=== PATIENT | male | born 1960 | race African-American/Black ===

== ENCOUNTER 2017-09-20 13:04 | Inpatient (IN) | payer MEDICARE, OTHER ==
[~2017-09-20] VITALS: Ht 188 cm; Wt 90.9 kg
[2017-09-20] VITALS (11 sets, daily range): BP systolic 117–123; BP diastolic 68–79; PULSE 70–103; RESP 16–17; TEMP 98–99.6; O2SAT 98
[~2017-09-20 13:04] MED LIST: ASPI81 PO; CYCL-36 PO; DICL75 PO
[2017-09-20] MEDS ORDERED: ASPIRIN 81 MG CHEW TAB PO STA (13:07)
[2017-09-20] MEDS ORDERED: SODIUM CHLOR 0.9% 1000 ML INJ 1,000 ML IV ONE (13:07)
[2017-09-20] MEDS ORDERED: NITROGLYCERIN 0.4 MG SL 25 TABS/BTL SL STA (13:07)
[2017-09-20] MEDS ORDERED: HEPARIN SODIUM - IV 10,000 UNITS/10 ML VIAL IV PUSH STA (13:07)
[2017-09-20] MEDS ORDERED: NITROGLYCERIN-D5W 50 MG/250 ML 0 ML ONE (13:11)
[2017-09-20] MEDS ORDERED: HEPARIN SODIUM - IV 10,000 UNITS/10 ML VIAL ONE (13:11)
[2017-09-20] MEDS ORDERED: SODIUM CHLORIDE 0.9% FLUSH 10 ML FLUSH IVF PRN (13:15)
[2017-09-20] MEDS ORDERED: NITROGLYCERIN-D5W 50 MG/250 ML 250 ML IV PRN ×2 (13:15→13:45)
--- NOTE | 2017-09-20 13:16 | PD ---
HPI Chief Complaint: STEMI Alert Time Seen by Provider: 13:06 Travel History International Travel<30 days: No Contact w/Intl Traveler<30days: No Traveled to known affect area: No History of Present Illness HPI This is a 57-year-old male with a history of coronary artery disease, reported cocaine use, who presents today with complaints of 3 day history of mid substernal chest pain. Patient was called a STEMI alert in the field. Patient at that time had anterior ST elevation. Patient reports that as a 5-6 out of 10 on the pain scale. He denies any nausea or diaphoresis. He reports the pain does radiate from his substernal area to his right chest wall. The patient states he had an IA 6 years ago. He states at that time Dr. Vergara performed a cardiac catheterization. There are no other complaints at the time of my examination. PFSH Past Medical History Arthritis: Yes (BILATERAL KNEE SURGERIES) Asthma: No Autoimmune Disease: No Blood Disorders: No Anxiety: No Depression: No Heart Rhythm Problems: No Cancer: No Cardiac Catheterization: Yes Cardiovascular Problems: Yes (6 STENTS) High Cholesterol: No Chemotherapy: No Chest Pain: Yes Congestive Heart Failure: No COPD: No Cerebrovascular Accident: No Diabetes: No Diminished Hearing: No Endocrine: No Gastrointestinal Disorders: No GERD: No Glaucoma: No Genitourinary: No Hepatitis: No Hiatal Hernia: No Hypertension: Yes Immune Disorder: No Kidney Stones: No Musculoskeletal: Yes (ARTHROSCOPY TO BOTH KNEES, HERNIATED DISCS) Neurologic: No Psychiatric: No Reproductive: No Respiratory: No Integumentary: No Immunizations Current: No Migraines: No Myocardial Infarction: Yes (2011) Radiation Therapy: No Renal Failure: No Seizures: No Sickle Cell Disease: No Sleep Apnea: No Thyroid Disease: No Ulcer: No Past Surgical History Abdominal Surgery: No AICD: No Arteriovenous Shunt: No Body Medical Devices: CARDIAC STENTS Cardiac Surgery: Yes (X3) Coronary Artery Bypass Graft: No Coronary Stent: Yes (X6 ) Ear Surgery: No Endocrine Surgery: No Eye Surgery: No Genitourinary Surgery: No Gynecologic Surgery: No Insulin Pump: No Joint Replacement: No Oral Surgery: No Pacemaker: No Thoracic Surgery: No Social History Alcohol Use: Yes (OCCASIONAL ) Tobacco Use: No Substance Use: No Allergies-Medications (Allergen,Severity, Reaction): Coded Allergies: No Known Allergies (Verified Allergy, Unknown, 09/20/17) Reported Meds & Prescriptions Reported Meds & Active Scripts Active Flexeril (Cyclobenzaprine HCl) 10 Mg Tab 10 Mg PO TID PRN Do not drive on medication. Do not take with alcohol. Diclofenac Sodium 75 Mg Tab 75 Mg PO BID PRN 10 Days Reported Aspirin 81 Mg Tab 81 Mg PO DAILY Review of Systems Except as stated in HPI: all other systems reviewed are Neg General / Constitutional: No: Fever Eyes: No: Blurred Vision, Photophobia HENT: No: Headaches, Masses Cardiovascular: Positive: Chest Pain or Discomfort, No: Palpitations, Irregular Rhythm (Substernal with radiation to the right side) Respiratory: Positive: Shortness of Breath, No: Cough Gastrointestinal: No: Nausea, Vomiting, Abdominal Pain Genitourinary: No: Frequency, Dysuria, Nocturia Musculoskeletal: No: Weakness, Pain Neurologic: No: Weakness, Dizziness, Headache Psychiatric: Positive: Substance Abuse (Reported cocaine use last night), No: Disorder of Thought Hematologic/Lymphatic: No: Easy Bruising Physical Exam Narrative GENERAL: Well-developed well-nourished male in no acute respiratory distress. Patient does have a slightly pale pallor to him. SKIN: Focused skin assessment warm/dry. HEAD: Atraumatic. Normocephalic. EYES: Pupils equal and round. No scleral icterus. No injection or drainage. ENT: No nasal bleeding or discharge. Mucous membranes pink and moist. NECK: Trachea midline. No JVD. Supple. CARDIOVASCULAR: Regular rate and rhythm. No murmur appreciated. RESPIRATORY: No accessory muscle use. Clear to auscultation. Breath sounds equal bilaterally. GASTROINTESTINAL: Abdomen soft, non-tender, nondistended. Hepatic and splenic margins not palpable. MUSCULOSKELETAL: No obvious deformities. No clubbing. No cyanosis. No edema. NEUROLOGICAL: Awake and alert. No obvious cranial nerve deficits. Motor grossly within normal limits. Normal speech. PSYCHIATRIC: Appropriate mood and affect; insight and judgment normal. Data Data Last Documented VS Vital Signs Date Time Temp Pulse Resp B/P (MAP) Pulse Ox O2 Delivery O2 Flow Rate FiO2 09/20/17 13:04 98 Nasal Cannula 2.00 09/20/17 13:04 97 17 09/20/17 13:04 98.0 123/79 (94) Orders Orders Troponin I (09/20/17 13:07) Ckmb (Isoenzyme) Profile (09/20/17 13:07) Complete Blood Count With Diff (09/20/17 13:07) I-Stat Profile (09/20/17 13:07) I-Stat Creatinine (09/20/17 13:07) Calcium (09/20/17 13:07) Magnesium (Mg) (09/20/17 13:07) Prothrombin Time / Inr (Pt) (09/20/17 13:07) Act Partial Throm Time (Ptt) (09/20/17 13:07) B-Type Natriuretic Peptide (09/20/17 13:07) Chest, Single Ap (09/20/17 13:07) Electrocardiogram (09/20/17 13:07) Oxygen Administration (09/20/17 13:07) Iv Access Insert/Monitor (09/20/17 13:07) Oximetry (09/20/17 13:07) Sodium Chlor 0.9% 1000 Ml Inj (Ns 1000 M (09/20/17 13:07) Sodium Chloride 0.9% Flush (Ns Flush) (09/20/17 13:15) Aspirin Chew (Aspirin Chew) (09/20/17 13:07) Nitroglycerin Sl (Nitrostat Sl) (09/20/17 13:07) Nitroglycerin-D5w 50 Mg/250 Ml (Nitrogly (09/20/17 13:15) Heparin Inj (Heparin Inj) (09/20/17 13:07) Cardiac Catheterization (09/20/17 ) Heparin Inj (Heparin Inj) (09/20/17 13:11) Admit Order (Ed Use Only) (09/20/17 13:16) CKMB (09/20/17 13:05) CKMB% (09/20/17 13:05) Labs Laboratory Tests Test 09/20/17 13:05 White Blood Count 6.3 TH/MM3 Red Blood Count 5.17 MIL/MM3 Hemoglobin 16.1 GM/DL Bedside Hemoglobin 16.3 G/DL Hematocrit 47.5 % Bedside Hematocrit 48.0 % Mean Corpuscular Volume 91.8 FL Mean Corpuscular Hemoglobin 31.2 PG Mean Corpuscular Hemoglobin Concent 34.0 % Red Cell Distribution Width 13.1 % Platelet Count 227 TH/MM3 Mean Platelet Volume 6.9 FL Neutrophils (%) (Auto) 48.5 % Lymphocytes (%) (Auto) 36.7 % Monocytes (%) (Auto) 8.7 % Eosinophils (%) (Auto) 5.3 % Basophils (%) (Auto) 0.8 % Neutrophils # (Auto) 3.1 TH/MM3 Lymphocytes # (Auto) 2.3 TH/MM3 Monocytes # (Auto) 0.6 TH/MM3 Eosinophils # (Auto) 0.3 TH/MM3 Basophils # (Auto) 0.1 TH/MM3 CBC Comment DIFF FINAL Differential Comment Prothrombin Time 11.0 SEC Prothromb Time International Ratio 1.1 RATIO Activated Partial Thromboplast Time 25.6 SEC Bedside Sodium 144 MMOL/L Bedside Potassium 4.1 MMOL/L Bedside Chloride 106 MMOL/L Bedside Blood Urea Nitrogen 10 MG/DL Bedside Creatinine 1.0 MG/DL Bedside Glucose 135 MG/DL Calcium Level 8.3 MG/DL Magnesium Level 2.3 MG/DL Total Creatine Kinase 388 U/L Creatine Kinase MB 8.0 NG/ML Creatine Kinase MB % 2.1 % Troponin I 0.57 NG/ML B-Type Natriuretic Peptide 83 PG/ML MDM Medical Decision Making Medical Screen Exam Complete: Yes Emergency Medical Condition: Yes Differential Diagnosis ACS versus muscular skeletal pain versus thoracic dissection Narrative Course 57-year-old male with history coronary disease, previous IA, presents here with ST elevation IA. Patient was made a STEMI alert in the field. Patient has 3-[address] elevation in V2 V3 V4. The patient was made a STEMI alert by EKG in the field. Case was discussed with Dr. Steven Hooper, who will take the [facility] to [facility] for catheterization. He has been given a bolus of 5500 units of heparin. He has had an aspirin prior to arrival. He is getting nitroglycerin. Diagnosis Primary Impression: Acute ST elevation myocardial infarction Additional Impressions: Reported cocaine use History of coronary artery disease Admitting Information Admitting Physician Requests: Admit Dillon Stovall MD Sep 20, 2017 13:16
[2017-09-20] MEDS ORDERED: HEPARIN-NS/PF FLUSH BAG 2,000 ML IV FLUSH ONE (13:24)
[2017-09-20 13:26] LABS: AUTOMATED NEUTROPHIL # 3.1 TH/MM3 (1.8-7.7); BASOPHIL # 0.1 TH/MM3 (0-0.2); BASOPHIL % 0.8 % (0.0-2.0); EOSINOPHIL # 0.3 TH/MM3 (0-0.4); EOSINOPHIL % 5.3 % (0.0-4.0); HEMATOCRIT 47.5 % (39.0-51.0); HEMOGLOBIN 16.1 GM/DL (13.0-17.0); LYMPH % 36.7 % (9.0-44.0); LYMPHOCYTE # 2.3 TH/MM3 (1.0-4.8); MEAN CELL VOLUME 91.8 FL (80.0-100.0); MEAN CORPUSCULAR HEMOGLOBIN 31.2 PG (27.0-34.0); MEAN PLATELET VOLUME 6.9 FL (7.0-11.0); MONO % 8.7 % (0.0-8.0); MONOCYTE # 0.6 TH/MM3 (0-0.9); NEUT % 48.5 % (16.0-70.0); PLATELET COUNT 227 TH/MM3 (150-450); RED BLOOD COUNT 5.17 MIL/MM3 (4.50-5.90); RED CELL DISTRIBUTION WIDTH 13.1 % (11.6-17.2); WHITE BLOOD COUNT 6.3 TH/MM3 (4.0-11.0)
[2017-09-20 13:34] LABS: INTERNATIONAL NORMALIZED RATIO 1.1 RATIO
[2017-09-20] MEDS ORDERED: MIDAZOLAM HCL 2 MG/2 ML VIAL ONE (13:34)
[2017-09-20 13:38] LABS: CALCIUM 8.3 MG/DL (8.5-10.1)
[2017-09-20 13:44] LABS: MAGNESIUM 2.3 MG/DL (1.5-2.5)
[2017-09-20 13:46] LABS: TROPONIN I 0.57 NG/ML (0.02-0.05)
[2017-09-20] MEDS ORDERED: TIROFIBAN INFUSION INJ 250 ML IV ONE (13:48)
--- NOTE | 2017-09-20 13:54 | RADRPT ---
EXAM DATE/TIME: 09/20/2017 13:05 [facility] COMPARISON: No previous studies available for comparison. INDICATIONS : Chest pain; Stemi alert. MEDICAL HISTORY : Myocardial infarction. SURGICAL HISTORY : Cardiac cath. Coronary stent. ENCOUNTER: Initial ACUITY: 1 day PAIN SCORE: 7/10 LOCATION: Bilateral chest FINDINGS: Single portable frontal view the chest shows hazy bibasilar parenchymal consolidations. These are ill -defined. No effusions. Heart is normal in size. Bony structures are unremarkable. CONCLUSION: Hazy ill-defined bibasilar parenchymal densities. Danilo Rubio Jr., MD on September 20, 2017 at 13:49 Board Certified Radiologist. This report was verified electronically.
[2017-09-20] MEDS ORDERED: TICAGRELOR 90 MG TAB PO ONE (14:04)
[2017-09-20] MEDS: TIROFIBAN INFUSION INJ 250 ML IV SCH (14:08)
[2017-09-20] MEDS ORDERED: SODIUM CHLOR 0.9% 1000 ML INJ 1,000 ML IV SCH (14:08)
--- NOTE | 2017-09-20 14:13 | CATHPROC ---
[employer] HIS Report Study Information Study Number Admission Scheduled Start Study Start [id number] Sep 20 2017 1:04PM 09/20/2017 Sep 20 2017 1:17PM [facility] Cardiac Catheterization Admit Source Facility Department Emergency department [facility] - Office Clinician Physician and Clinical Staff Initial Steven Arango Wireless Consultant Isidoro Aguillon,MEI Wireless Consultant Renay Thomas,PRIEST TECH2 Recorder Justo Mcclure,(R) Recorder Zahra Clark BSN Scrub Cb Mccarty RCIS(BS) Procedures Performed Procedure Location (Site) Vessel Name Coronary Angiograms LCA Left Coronary Coronary Angiograms RCA Right Coronary Drug Eluting Inflatio LAD Mid Left Coronary L Heart Cath LV Gram-hand inj. LV LV Ventricle PTCA LAD Mid Left Coronary PTCA ADD ON'S Wire insertion Fem Art (right) Femoral Art Equipment Time Rx Specialist Description Size Mfg Part Number Used/Scraped [id number] 13:44 [employer] WIRE, ASAHI PROWATER 180CM 180CM Used *[id number] TRANSDUCER, TRUWAVE [id number] 13:34 HERNANDEZ IZQUIERDO * Used W/STOCKCOCK *[id number] *[id number] [id number] *[id number] *[id number] *[id number] 13:34 [employer] IND[employer] PACK, CCL CUSTOM * Used *[id number] 13:34 [employer] PACER PEN, SKIN DUAL W/ RULER * Used *[id number] 13:48 [employer] BALLOON, 3.0 X 15MM EUPHORA 15MM Used *[id number] 13:50 [employer] STENT, 3.0 22MM BECKY 3.0 22MM Used *[id number] 13:45 Oxyrane [employer] MEDICAL 30 GATITO INDEFLATOR Used *[id number] 13:34 Oxyrane [employer] SHEATH, FR6.5 PRELUDE 11CM FR 6.5 038ACT Used *[id number] 13:34 [employer]xy[employer] WIRE, 3MMJ .035 180CM 180CM Used *[id number] 13:34 NAMIC MANIFOLD, 4 PORT * Used *[id number] 13:34 [employer] OMNIPAQUE, 350 MG, 150ML 150ML [id number] Used [id number] 13:34 [facility] BLANKET,WARM AIR CCL * Used *[id number] Equipment Model, Serial, Lot Number and Expiration Data Description Model Number Serial Number Lot Number Expiration Date STENT, 3.0 22MM BECKY [id number] 02-02-2019 History: Allergies Allergy Reaction No Known Allergies Labs Hgb (g/dl) Hct (%) 11.60-17.00 35.00-51.00 16.3 48 BUN (mg/dl) Creatinine (mg/dl) BUN:Creatinine (1:x) 7.00-18.00 0.50-1.30 10.00-20.00 10 1.0 10 Na (meq/l) K (meq/l) 136.00-145.00 3.50-5.10 144 4.1 CPK-MB (ng/ML) 0.50-3.60 Not Drawn Medication Medication Total Dose (Bolus/Oral) Medication Total Dosage/Unit 1% XYLOCAINE 20 mL AGGRASTAT BOLUS 46 mL BRILINTA 180 mg Medications (Bolus/Oral) Medication Time Given Dosage/Unit Administered By Reason 1% XYLOCAINE 09/20/2017 1:40:14 PM 20 mL Steven Lock 20 mL 1% XYLOCAINE given in lab by Steven Lock in Right Groin via Subcutaneous. Ordered by Carrillo Lockn. AGGRASTAT BOLUS 09/20/2017 1:51:43 PM 46 mL Isidoro Aguillon 46 mL AGGRASTAT BOLUS given in lab by Isidoro Aguillon RN in Left Forearm via Peripheral IV. Ordered b Steven Gee. BRILINTA 09/20/2017 2:05:23 PM 180 mg Isidoro Aguillon 180 mg BRILINTA given in lab by Isidoro Aguillon, MEI via Oral. Ordered by Steven Lock. Medication (Drip) Medication Time Given Dosage/Unit Concentration/Unit Diluent (ml) Solution AGGRASTAT DRIP 09/20/2017 1:55:53 PM 0.147 mcg/kg/min 12.5 mg 250 NaCl .9 0.147 mcg/kg/min AGGRASTAT DRIP given in lab by Isidoro Aguillon RN in Left Forearm via Peripheral IV. Pump/Drip Flow = 16 ml/hr using NaCl .9 with a concentration of 12.5 mg in 250 ml. Ordered by Steven Lock. IV Solutions 09/20/2017 1:25:47 PM 0 mL (IV) 500 NaCl .9 Patient arrived on IV Solutions given by Steven Lock in Left Forearm via Peripheral IV. Pump/Drip Fl ow = 20 ml/hr using NaCl .9. Ordered by Steven Lock. Initial Case Assessment Initial Case Assessment Cardiovascular HR Rhythm NIBP Chest Pain 89 sr 109/78 2 Edema Present Skin color Skin None Normal Warm Dry Circulatory - Right Pulses Posterior Tibial Femoral 3 3 Scale (0,1,2,3,4,d) Circulatory - Left Pulses Posterior Tibial Femoral 3 3 Scale (0,1,2,3,4,d) Neurological State Oriented to time-place- Alert Moves all extremities person Respiration - General Respiration Rate SpO2 (%) O2 (lpm) (B/min) 17 92 2 Final Case Assessment Cardiovascular HR Rhythm NIBP 93 sr 106/70 Edema Present Skin color Skin None Normal Warm Dry Respiration - General Respiration Rate SpO2 (%) O2 (lpm) (B/min) 11 94 2 Chronological Log Time Study Chronological Log 13:24:44 Patient arrived via Bed. 13:24:45 Patient Name, D.O.B, / Armband Verified By R.N. 13:24:48 Consent signed by the physician and the patient and verified by the Office Clinician staff. 13:24:50 Pre-op and post- op instructions given; patient acknowledges understanding of instructions . 13:25:30 Presedation assessment performed by Office Clinician RN. 13:25:41 Skin Breakdown- none per patient 13:25:42 Patient Warmer Placed on the Table. 13:25:44 Disposable Defibrillator Pads Placed On Patient. 13:25:46 Yael Prominences Protected 13:25:47 A # 20 IV was noted in the Forearm (right). Grade = 0 Patient arrived on IV Solutions given by Steven Lock in Left Forearm via Peripheral IV. Pump/D rip Flow = 20 ml/hr 13:25:47 using NaCl .9. Ordered by Steven Lock. 13:25:48 History and physical on the chart or being dictated. 13:25:50 Assessment: Initial Case Vitals capture started with the following parameters, Patient=Adult, Interval=3 min, Initial Pr mdjzjx=781 mmHg, 13:28:01 Deflation Rate=5 mmHg, Cuff placed on Left Arm 13:28:31 KEKM=901/73 mmhg, SpO2=89.0 %, Lopez=2 13:29:03 A # 20 IV was noted in the Forearm (left). Grade = 0 13:29:44 History and physical on the chart or being dictated. 13:31:33 EB=461 bpm, USBF=663/73 mmhg, SpO2=89.0 %, Resp=27 B/min, Lopez=2 13:32:04 paged 13:32:45 Bilateral groins prepped with 2% chlorhexidine, and draped after a 3 minute waiting time. 13:33:10 MD responded 13:33:19 Reference ECG taken 13:34:15 Pressure channel 1 zeroed. 13:34:29 HR=91 bpm, CAZM=614/78 mmhg, SpO2=94.0 %, Resp=22 B/min, Pain=2, Hakeem=10, Lopez=2 Assessment: Initial Case, HR=89 BPM, Rhythm=sr, JCBA=539/78 mmhg, Chest Pain=2, Edema=None, Col or=Normal, Skin = Warm, Dry Right Pulses: Post Tib=3, Femoral=3 13:36:27 Left Pulses: Post Tib=3, Femoral=3 Neurological: State=Alert, Ox3, BAKER Respiration: Resp=17 B/min, SpO2=92 %, O2=2 lpm 13:37:28 MD arrived. 13:37:32 HR=97 bpm, LABE=378/71 mmhg, SpO2=90 %, Resp=12 B/min, Pain=2, Hakeem=10, Lopez=2 Time Out. Correct patient, correct procedure, correct physician, power injector loaded, or not loaded with contrast with 13:39:39 surgical team present. Time Out Concurred by MD and individual staff in procedure. 13:39:44 Case Start 13:40:04 Access site was Right Femoral Artery. 13:40:11 A SHEATH, FR6.5 PRELUDE 11CM FR 6.5 was advanced into the Fem Art (right) using the Percuta neous technique. 13:40:14 20 mL 1% XYLOCAINE given in lab by Steven Lock in Right Groin via Subcutaneous. Ordered by Steven Lock. 13:40:32 HR=97 bpm, UQGB=201/77 mmhg, SpO2=89 %, Resp=24 B/min, Pain=2, Hakeem=10, Lopez=2 A JL 4.0 INFINITI CATHETER FR 6 was advanced over a wire. OMNIPAQUE, 350 MG, 150ML 150ML was us ed for 13:40:48 injections. 13:41:48 The LCA was injected and visualized at various angles. OMNIPAQUE, 350 MG, 150ML 150ML used . Recorded Pressure: Ao, HR=84, Condition=Condition 1 13:42:15 (Aorta) Ao 93/63/76 13:42:41 Catheter was removed 13:42:50 Activated Clotting Time Drawn A 3DRC INFINITI CATHETER FR 6 was advanced over a wire. OMNIPAQUE, 350 MG, 150ML 150ML was used for 13:43:10 injections. 13:43:34 IY=952 bpm, VWDH=184/77 mmhg, SpO2=89 %, Resp=24 B/min, Pain=2, Hakeem=10, Lopez=2 13:43:47 The RCA was injected and visualized at various angles. OMNIPAQUE, 350 MG, 150ML 150ML used . 13:44:13 Catheter was removed A XB 3.5 GUIDE CATHETER FR 6 was advanced over a wire. OMNIPAQUE, 350 MG, 150ML 150ML was used for 13:44:35 injections. 13:44:59 OMNIPAQUE, 350 MG, 150ML 150ML and 30 GATITO INDEFLATOR added. 13:46:07 A WIRE, ASAHI PROWATER 180CM 180CM was inserted via Fem Art (right). 13:46:34 HR=98 bpm, QIEH=603/74 mmhg, SpO2=90 %, Resp=12 B/min, Pain=2, Hakeem=10, Lopez=2 13:47:03 Interventional wire has crossed the lesion A BALLOON, 3.0 X 15MM EUPHORA 15MM was inserted over WIRE, ASAHI PROWATER 180CM 180CM via the F em Art 13:47:50 (right). 13:48:09 ACT (Normal Range 90-180) = 258 A BALLOON, 3.0 X 15MM EUPHORA 15MM over a WIRE, ASAHI PROWATER 180CM 180CM in the LAD Mid was i nflated 13:48:23 using a 30 GATITO INDEFLATOR at 8 gatito for 20 sec. A BALLOON, 3.0 X 15MM EUPHORA 15MM over a WIRE, ASAHI PROWATER 180CM 180CM in the LAD Mid was i nflated 13:49:03 using a 30 GATITO INDEFLATOR at 8 gatito for 20 sec. A BALLOON, 3.0 X 15MM EUPHORA 15MM over a WIRE, ASAHI PROWATER 180CM 180CM in the LAD Mid was i nflated 13:49:23 using a 30 GATITO INDEFLATOR at 8 gatito for 20 sec. 13:49:35 HR=97 bpm, CLBA=874/68 mmhg, SpO2=93.0 %, Resp=22 B/min, Pain=2, Hakeem=10, Lopez=2 A STENT, 3.0 22MM BECKY 3.0 22MM was advanced through a XB 3.5 GUIDE CATHETER FR 6 over a WIRE, [facility] 13:50:59 PROWATER 180CM 180CM. A STENT, 3.0 22MM BECKY 3.0 22MM was deployed using a 30 GATITO INDEFLATOR at 15 atmospheres for 30 seconds in 13:51:13 the LAD Mid. 13:51:43 46 mL AGGRASTAT BOLUS given in lab by Isidoro Aguillon RN in Left Forearm via Peripheral IV. Ordered by Steven Lock. 13:52:21 Delivery device removed 13:52:35 HR=86 bpm, HYKC=269/66 mmhg, SpO2=91.0 %, Resp=24 B/min, Pain=2, Hakeem=10, Lopez=2 13:52:50 Catheter was removed A MPA-2 INFINITI CATHETER FR 6 was advanced over a wire. OMNIPAQUE, 350 MG, 150ML 150ML was use d for 13:53:08 injections. Recorded Pressure: LV, HR=97, Condition=Condition 1 13:54:21 (Left Ventricle) LV 91/14/31 13:54:28 The LV was manually injected with 10 cc's and visualized. OMNIPAQUE, 350 MG, 150ML 150ML us ed. Recorded Pressure: LV, Ao, CR=663, Condition=Condition 1 13:54:30 (Left Ventricle) LV 97/12/29, (Aorta) Ao 94/64/76 13:54:59 Catheter was removed 13:55:33 HR=98 bpm, JAMT=387/72 mmhg, SpO2=93.0 %, Resp=21 B/min, Pain=2, Hakeem=10, Lopez=2 13:55:37 Case End 0.147 mcg/kg/min AGGRASTAT DRIP given in lab by Isidoro Aguillon, RN in Left Forearm via Peripher al IV. Pump/Drip 13:55:53 Flow = 16 ml/hr using NaCl .9 with a concentration of 12.5 mg in 250 ml. Ordered by Howard Lock 13:57:23 In the Fem Art (right) the SHEATH, FR6.5 PRELUDE 11CM FR 6.[address] by Cb Mccarty RCIS(BS). 13:57:41 Sterile dressing applied to site 13:57:43 No case complications noted. 13:57:44 Cine recording checked. 13:57:47 Bedside Report will be given. 13:58:23 A Left Heart Cath was performed. 13:58:31 Contrast Scanned 13:58:35 HR=92 bpm, GYKA=450/70 mmhg, SpO2=95.0 %, Resp=11 B/min, Pain=2, Hakeem=10, Lopez=2 Assessment: Final Case, HR=93 BPM, Rhythm=sr, HVRY=805/70 mmhg, Edema=None, Color=Normal, Skin = Warm, 13:58:35 Dry Respiration: Resp=11 B/min, SpO2=94 %, O2=2 lpm 14:01:30 NIBP STAT measurement started. 14:01:31 Vitals capture stopped. 14:05:23 180 mg BRILINTA given in lab by Isidoro Aguillon, RN via Oral. Ordered by Steven Lock. 14:09:50 [facility] Study - Contrast Media Used In Study Contrast Total Opened (mL) Total Used (mL) Total Wasted (mL) Omnipaque 120 120 0 End Study - Maximum Contrast Load Max Contrast Load (mL) 455.0 End Study - Radiation Exposure Fluoro Time (minutes) 4.5 End Study - Patient Disposition Complications Transferred To Interventional Outcome No Telemetry Bed successful
[2017-09-20] MEDS ORDERED: MISC INFORMATION XX ONE (14:15)
[2017-09-20] MEDS ORDERED: TEMAZEPAM 15 MG CAP PO PRN (14:15)
[2017-09-20] MEDS ORDERED: IOHEXOL 350 MG/ML 50 ML BTL (for Cath Lab) OTHER ONE (14:48)
[2017-09-20] MEDS ORDERED: IOHEXOL 350 MG/ML 100 ML BTL (for Cath Lab) OTHER ONE (14:48)
--- NOTE | 2017-09-20 14:58 | MB ---
cc: JACOB LUX M.D. DATE OF CONSULTATION 09/20/2017 DATE OF 1960 REASON FOR CONSULTATION Acute ST-elevation myocardial infarction. HISTORY OF PRESENT ILLNESS The patient is a 57-year-old -[place] male with a history of coronary artery disease, hyperlipidemia, who was in his usual state of health up until three days ago when he began to experience intermittent episodes of substernal chest discomfort described as "heartburn." There has been no associated shortness of breath, nausea or diaphoresis. Because the chest pain became particularly severe this morning he came into the emergency room. EKG showed evidence for acute anterior ST-elevation so he was called as a STEMI Alert. He states his chest discomfort has decreased in intensity since coming into the emergency department. He denies pleurisy, dizziness, syncope, near-syncope, palpitations, pedal edema, paroxysmal nocturnal dyspnea. PAST MEDICAL HISTORY 1. Coronary artery disease status post inferior ST-elevation myocardial infarction 08/26/2011 with stent of the proximal right coronary artery at that time by Dr. Jessa Vergara, using a 3.0 mm Xience. Five days later he underwent stent x 3 of the left circumflex including a 2.75 mm at the ostium, 2.5 mm in the midsection, 2.25 mm distally. It is not entirely clear what type of stents were placed in the left circumflex. At that time he also underwent angioplasty of the diagonal. 2. Hyperlipidemia. MEDICATIONS Cardiac medications at home: None. ALLERGIES No known drug allergies. FAMILY HISTORY Noncontributory. SOCIAL HISTORY The patient smokes about seven or eight cigarettes per day. He admits to cocaine abuse, the last time last night. There is no history of alcohol abuse. REVIEW OF SYSTEMS As in the history of present illness otherwise negative or noncontributory. He also denies headache, abdominal pain, melena, dyspepsia, bright red blood per rectum. PHYSICAL EXAMINATION VITAL SIGNS: Blood pressure 123/79 with a pulse of 99, respirations 17. GENERAL: In general he is a well-developed, well-nourished -[place] male in no acute distress. HEENT/NECK: Jugular venous pressure is normal. Carotid pulses are 2+ bilaterally and without bruits. CHEST: Examination of the chest reveals clear lung irene. CARDIAC: On cardiac examination he has a regular rhythm and rate without S3, S4, or murmur. ABDOMEN: On abdominal examination he has a soft, nontender abdomen. Bowel sounds are present. There is no definite hepatosplenomegaly. EXTREMITIES: Examination of the extremities reveals no clubbing, cyanosis or edema. Peripheral pulses are normal throughout. EKG EKG shows sinus rhythm, anterior and anterolateral ST elevation consistent with acute injury pattern. LABORATORY Laboratory data is pending. IMAGING Chest x-ray is pending. IMPRESSION Acute anterior ST-elevation myocardial infarction in this 57-year-old white male with a history of coronary artery disease status post four coronary stents in [address]-elevation myocardial infarction at that time, history of hyperlipidemia, medical noncompliance. At this time he has ongoing chest pains with ST-elevation on the monitor. Therefore he has been recommended emergency cardiac catheterization with probable percutaneous coronary intervention. The nature of these procedures and the potential risks including but not limited to , myocardial infarction, stroke, arrhythmia, bleeding, infection, renal failure, have been outlined to the patient. He agrees to proceed. RECOMMENDATIONS 1. Emergency cardiac catheterization. 2. Eventually start beta cesia and PRATIBHA inhibitor therapy. 3. Daily aspirin. 4. Check a fasting lipid profile and initiate statin therapy. MD TITUS Hammond/MICHAEL /1:21 PM /2:45 PM MTDD
--- NOTE | 2017-09-20 15:42 | MA ---
cc: JACOB LUX M.D. DATE 09/20/2017 DATE OF 1960 PROCEDURE Emergency left heart catheterization, selective coronary angiography, left ventriculography, angioplasty and stent of a totally occluded mid LAD. PROCEDURE NOTES The patient was brought to the cardiac catheterization laboratory in a fasting state after having signed informed consent. The patient was in the midst of an acute anterior ST elevation myocardial infarction. The right groin was prepped and draped as per policy and anesthetized with 1% lidocaine. Arterial access was obtained via the right femoral artery and a 6 Arabic sheath placed. Coronary arteriography was performed using a 6 Arabic Arsen left 4.0 and right progressive catheters. Left ventriculography was done using a multipurpose catheter. Percutaneous coronary intervention was done as described below. There were no apparent immediate complications. HEMODYNAMIC DATA Left ventricle 97 with an end-diastolic pressure of 20. Aorta 94/64 with a mean of 76. There was no significant transvalvular aortic gradient on pullback of the pigtail catheter. CORONARY ARTERIOGRAPHY The left main may have 20% distal stenosis. The mid left anterior descending is totally occluded right after the takeoff of the first septal analytical laboratory technician. The LAD gives rise to a very small caliber diagonal which has diffuse disease with up to 95% stenosis proximally. The left circumflex is diffusely diseased. It is somewhat difficult to quantify the degree of stenosis. From its ostial to proximal portion there is likely up to 50%. Stents are evident in its mid and distal portions, and the stents are widely patent. The left circumflex gives rise to three small obtuse marginals, the first of which has up to 40% ostial stenosis, the second of which has up to 70% ostial stenosis. There is a fairly large ramus intermedius which has diffuse ostial to proximal disease resulting in up to 40% stenosis. The right coronary artery is also diffusely diseased. There is a stent evident in its proximal portion and there is mild to moderate diffuse re-stenosis of the stent resulting in up to 40% stenosis. It is somewhat difficult to tell with certainty, but the right coronary is probably totally occluded in its midportion after the takeoff of a large right ventricular branch. There are fair to good [id number] collaterals. PERCUTANEOUS CORONARY INTERVENTION DESCRIPTION Adequate heparin was given during the procedure to achieve an ACT greater than 250 seconds. Aggrastat was given as per protocol. Using a 6-Arabic XB 3.5 guiding catheter the ostium of the left main was re-engaged. Using a 0.014 [place] guidewire the total occlusion in the mid-LAD was crossed without difficulty and the tip of the wire positioned distally. Predilation was done using a 3.0-mm Euphora balloon catheter. Stenting was done using a 3.0 x 22-mm Resolute [place] stent which was deployed at 15-16 atmospheres for 30 seconds. Final angiography shows reduction of the initial total occlusion to 0% residual with no evidence for dissection or distal embolization. The patient tolerated the procedure well. There were no apparent immediate complications. LEFT VENTRICULOGRAPHY Contrast injection of the left ventricle is somewhat suboptimal as it was done as a hand injection. There appears to be global hypokinesis. Ejection fraction is estimated at 25%. CONCLUSIONS 1. Severe two-vessel coronary artery disease including an acutely occluded mid LAD, the patient's infarct-related vessel, now status post angioplasty and stent of this region. 2. Severely reduced left ventricular systolic function with ejection fraction estimated at 25% due to global hypokinesis. MD TITUS Hammond/MICHAEL /2:01 PM /3:31 PM MTDD
--- NOTE | 2017-09-20 15:54 | MA ---
See full dictated cardiac catheterization report. MD TITUS Hammond/RYANNE /2:17 PM /3:48 PM MTDD
[2017-09-20] MEDS: ATORVASTATIN 40 MG TAB PO SCH (20:56)
[2017-09-20] MEDS: ENALAPRIL MALEATE 2.5 MG TAB PO SCH (20:56)
[2017-09-20] MEDS: METOPROLOL TARTRATE 25 MG TAB PO SCH (20:56)
[2017-09-20] MEDS ORDERED: ENALAPRIL MALEATE 5 MG TAB PO SCH (21:00)
[2017-09-21] VITALS (33 sets, daily range): BP systolic 91–115; BP diastolic 49–78; PULSE 70–106; RESP 16–20; TEMP 97.8–99.9; O2SAT 95–98
[2017-09-21] MEDS: traMADol HCL 50 MG TAB PO SCH ×2 (02:30→21:33)
[2017-09-21] MEDS: TIROFIBAN INFUSION INJ 250 ML IV SCH (02:46)
[2017-09-21 06:57] LABS: AUTOMATED NEUTROPHIL # 7.3 TH/MM3 (1.8-7.7); BASOPHIL # 0.1 TH/MM3 (0-0.2); BASOPHIL % 0.5 % (0.0-2.0); EOSINOPHIL # 0.1 TH/MM3 (0-0.4); EOSINOPHIL % 0.6 % (0.0-4.0); HEMATOCRIT 45.6 % (39.0-51.0); HEMOGLOBIN 15.8 GM/DL (13.0-17.0); LYMPHOCYTE # 1.6 TH/MM3 (1.0-4.8); MEAN CELL VOLUME 91.1 FL (80.0-100.0); MEAN CORPUSCULAR HEMOGLOBIN 31.5 PG (27.0-34.0); MEAN CORPUSCULAR HGB CONC 34.6 % (32.0-36.0); MEAN PLATELET VOLUME 7.5 FL (7.0-11.0); MONO % 8.4 % (0.0-8.0); MONOCYTE # 0.8 TH/MM3 (0-0.9); NEUT % 74.5 % (16.0-70.0); PLATELET COUNT 227 TH/MM3 (150-450); RED CELL DISTRIBUTION WIDTH 13.3 % (11.6-17.2); WHITE BLOOD COUNT 9.8 TH/MM3 (4.0-11.0)
[2017-09-21 07:28] LABS: BICARBONATE 25.2 MEQ/L (21.0-32.0); CALCIUM 8.1 MG/DL (8.5-10.1); CREATININE 0.92 MG/DL (0.60-1.30)
[2017-09-21 07:44] LABS: CHOLESTEROL/ HDL RATIO 3.66 RATIO; HDL CHOLESTEROL 45.6 MG/DL (40.0-60.0)
--- NOTE | 2017-09-21 08:06 | PD.CARD.PN ---
Subjective Subjective Remarks No angina, dyspnea, dizziness, palpitations. Slept fairly well. Objective Medications Item Value Date Time Aspirin 81 mg 09/21/17 09 (Aspirin Chew) DAILY/PO Ticagrelor 90 mg 09/21/17899 (Brilinta) BID/PO Metoprolol 12.5 mg 09/20/172099 Tartrate BID/PO 09/20/172055 (Lopressor) Atorvastatin 40 mg 09/20/172099 Calcium HS/PO 09/20/172055 (Lipitor) Enalapril Maleate 2.5 mg 09/20/172099 (Vasotec) BID/PO 09/20/172055 Tirofiban/Sodium 250 ml @ 16.38 mls/hr 09/20/17 1408 Chloride .[id number] 09/21/17 0246 Current Medications Medications (Trade) Dose Ordered Sig/Prabha Route Start Time Stop Time Status Last Admin (NS Flush) 2 ml UNSCH PRN IVF 09/20/17 13:15 Nitroglycerin/ Dextrose 250 ml @ 3 mls/hr TITRATE PRN IV 09/20/17 13:45 (Restoril) 15 mg HS PRN PO 09/20/17 14:15 (Aspirin Chew) 81 mg DAILY PO 09/21/17 09:00 (Brilinta) 90 mg BID PO 09/21/17 09:00 Tirofiban/Sodium Chloride 250 ml @ 16.38 mls/ hr [id number] IV 09/20/17 14:08 09/21/17 08:07 09/21/17 02:46 (Lopressor) 12.5 mg BID PO 09/20/17 21:00 09/20/17 20:56 (Lipitor) 40 mg HS PO 09/20/17 21:00 09/20/17 20:56 (Vasotec) 2.5 mg BID PO 09/20/17 21:00 09/20/17 20:56 (Ultram) 50 mg HS PO 09/21/17 00:00 09/21/17 02:30 Vital Signs / I&O Vital Signs Date Time Temp Pulse Resp B/P (MAP) Pulse Ox O2 Delivery O2 Flow Rate FiO2 09/21/17 06:00 77 09/21/17 05:00 74 09/21/17 04:00 74 09/21/17 03:29 99.9 95 18 115/76 (89) 95 09/21/17 03:00 88 09/21/17 02:00 96 09/21/17 01:00 70 09/21/17 00:03 99.6 106 18 113/77 (89) 98 09/21/17 00:00 70 09/20/17 23:00 70 09/20/17 22:00 72 09/20/17 21:00 72 09/20/17 20:00 80 09/20/17 20:00 99.6 103 16 117/68 (84) 98 09/20/17 19:00 83 09/20/17 18:00 90 09/20/17 17:00 95 09/20/17 16:00 89 09/20/17 15:00 90 09/20/17 13:20 90 16 120/71 (87) 98 Nasal Cannula 2.00 09/20/17 13:20 09/20/17 13:04 98 Nasal Cannula 2.00 09/20/17 13:04 97 17 97 Nasal Cannula 2.00 09/20/17 13:04 98.0 99 17 123/79 (94) 98 I/O 09/20/17 09/20/17 09/20/17 09/21/17 09/21/17 09/21/17 07:00 15:00 23:00 07:00 15:00 23:00 Intake Total 1440 ml 1950 ml Output Total 300 ml 1050 ml Balance 1140 ml 900 ml Intake Oral 1440 ml 960 ml IV Total 990 ml Output Urine Total 300 ml 1050 ml Physical Exam GENERAL: Well developed, well nourished. No acute distress. HEENT: Jugular venous pressure is normal. CHEST: Lungs clear to auscultation bilaterally. CARDIAC: Regular rate and rhythm without S3, S4, or murmur. ABDOMEN: Soft, nontender, no hepatosplenomegaly. Bowel sounds present. EXTREMITIES: No clubbing, cyanosis, or edema. Right groin nontender, no hematoma. Laboratory Laboratory Tests Test 09/20/17 13:05 09/21/17 05:01 09/21/17 05:07 White Blood Count 6.3 TH/MM3 9.8 TH/MM3 Red Blood Count 5.17 MIL/MM3 5.00 MIL/MM3 Hemoglobin 16.1 GM/DL 15.8 GM/DL Bedside Hemoglobin 16.3 G/DL Hematocrit 47.5 % 45.6 % Bedside Hematocrit 48.0 % Mean Corpuscular Volume 91.8 FL 91.1 FL Mean Corpuscular Hemoglobin 31.2 PG 31.5 PG Mean Corpuscular Hemoglobin Concent 34.0 % 34.6 % Red Cell Distribution Width 13.1 % 13.3 % Platelet Count 227 TH/MM3 227 TH/MM3 Mean Platelet Volume 6.9 FL 7.5 FL Neutrophils (%) (Auto) 48.5 % 74.5 % Lymphocytes (%) (Auto) 36.7 % 16.0 % Monocytes (%) (Auto) 8.7 % 8.4 % Eosinophils (%) (Auto) 5.3 % 0.6 % Basophils (%) (Auto) 0.8 % 0.5 % Neutrophils # (Auto) 3.1 TH/MM3 7.3 TH/MM3 Lymphocytes # (Auto) 2.3 TH/MM3 1.6 TH/MM3 Monocytes # (Auto) 0.6 TH/MM3 0.8 TH/MM3 Eosinophils # (Auto) 0.3 TH/MM3 0.1 TH/MM3 Basophils # (Auto) 0.1 TH/MM3 0.1 TH/MM3 CBC Comment DIFF FINAL DIFF FINAL Differential Comment Prothrombin Time 11.0 SEC Prothromb Time International Ratio 1.1 RATIO Activated Partial Thromboplast Time 25.6 SEC Bedside Sodium 144 MMOL/L Bedside Potassium 4.1 MMOL/L Bedside Chloride 106 MMOL/L Bedside Blood Urea Nitrogen 10 MG/DL Bedside Creatinine 1.0 MG/DL Bedside Glucose 135 MG/DL Calcium Level 8.3 MG/DL 8.1 MG/DL Magnesium Level 2.3 MG/DL Total Creatine Kinase 388 U/L 1298 U/L Creatine Kinase MB 8.0 NG/ML Creatine Kinase MB % 2.1 % Troponin I 0.57 NG/ML B-Type Natriuretic Peptide 83 PG/ML Blood Urea Nitrogen 7 MG/DL Creatinine 0.92 MG/DL Random Glucose 109 MG/DL Sodium Level 139 MEQ/L Potassium Level 3.8 MEQ/L Chloride Level 106 MEQ/L Carbon Dioxide Level 25.2 MEQ/L Anion Gap 8 MEQ/L Estimat Glomerular Filtration Rate 104 ML/MIN Triglycerides Level 98 MG/DL Cholesterol Level 167 MG/DL LDL Cholesterol 102 MG/DL HDL Cholesterol 45.6 MG/DL Cholesterol/HDL Ratio 3.66 RATIO Imaging Last 24 hours Impressions Chest X-Ray 09/20/17 1307 Signed Impressions: Service Date/Time: Wednesday, September 20, 2017 13:05 - CONCLUSION: Hazy ill-defined bibasilar parenchymal densities. Danilo Rubio Jr., MD Assessment and Plan Problem List: (1) Acute ST elevation myocardial infarction ICD Codes: I21.3 - ST elevation (STEMI) myocardial infarction of unspecified site Status: Acute Plan: Stable overnight. No further angina. Groin stable. AM labs OK. Continue current medical regimen. Possible discharge tomorrow. I stressed utter importance of compliance with medications. (2) Cardiomyopathy ICD Codes: I42.9 - Cardiomyopathy, unspecified Status: Chronic Plan: Somewhat suboptimal left ventriculogram, EF possibly down to 25%, probably component of non-ischemic etiology as well. No definite CHF. Rec continue beta cesia, PRATIBHA-I. Await echo. (3) Hyperlipidemia ICD Codes: E78.5 - Hyperlipidemia, unspecified Status: Chronic Plan: Suboptimal LDL (102). Continue statin therapy, recheck labs in 6-8 weeks. Code Status full code Discussed Condition With patient Problem Qualifiers (1) Acute ST elevation myocardial infarction: Qualified Codes: I21.02 - ST elevation (STEMI) myocardial infarction involving left anterior descending coronary artery (2) Cardiomyopathy: Qualified Codes: I42.9 - Cardiomyopathy, unspecified (3) Hyperlipidemia: Qualified Codes: E78.2 - Mixed hyperlipidemia Steven Lock MD Sep 21, 2017 08:06
[2017-09-21] MEDS: TICAGRELOR 90 MG TAB PO SCH ×2 (09:28→21:32)
[2017-09-21] MEDS: METOPROLOL TARTRATE 25 MG TAB PO SCH ×2 (09:28→21:34)
[2017-09-21] MEDS: ASPIRIN 81 MG CHEW TAB PO SCH (09:29)
[2017-09-21] MEDS: ENALAPRIL MALEATE 2.5 MG TAB PO SCH ×2 (09:29→21:33)
--- NOTE | 2017-09-21 11:51 | HHI.HP ---
HPI Service [facility] Primary Care Physician Unknown Admission Diagnosis Acute STEMI, CAD, reported cocaine use Diagnoses: Chief Complaint: Chest pain Travel History International Travel<30 Days: No Contact w/Intl Traveler <30 Da: No Traveled to Known Affected Are: No History of Present Illness 57 years old male with history of hyperlipidemia and coronary artery disease had multiple stenting 6 years ago, presented to the ED complaining of 2 weeks of chest pain comes and goes gets up to 7 out of 10, along with diaphoresis short of breath and dizziness, no transfer. Patient was found to have ST elevation in the lateral leads, STEMI alert was activated patient went to lab[employer] and had pending by cardiology, when I saw him he was chest pain-free denied any other symptom, he is a smoker according to him one pack per day for about 20 years Review of Systems All systems reviewed and was positive for what is mentioned in history of present illness otherwise negative Past Family Social History Past Medical History Hyperlipidemia Coronary artery disease with stenting 6 years ago Past Surgical History Heart cath 6 years ago Allergies: Coded Allergies: No Known Allergies (Verified Allergy, Unknown, 09/20/17) Family History Review with the patient,not aware of significant medical history runs in his family Social History Smoke 1 pack per day, drinks alcohol socially no illicit drug Physical Exam Vital Signs Vital Signs Date Time Temp Pulse Resp B/P (MAP) Pulse Ox O2 Delivery O2 Flow Rate FiO2 09/21/17 10:03 90 09/21/17 09:30 84 09/21/17 08:28 87 09/21/17 07:30 98.7 90 16 95/66 (76) 97 09/21/17 07:30 87 09/21/17 06:00 77 09/21/17 05:00 74 09/21/17 04:00 74 09/21/17 03:29 99.9 95 18 115/76 (89) 95 09/21/17 03:00 88 09/21/17 02:00 96 09/21/17 01:00 70 09/21/17 00:03 99.6 106 18 113/77 (89) 98 09/21/17 00:00 70 09/20/17 23:00 70 09/20/17 22:00 72 09/20/17 21:00 72 09/20/17 20:00 80 09/20/17 20:00 99.6 103 16 117/68 (84) 98 09/20/17 19:00 83 09/20/17 18:00 90 09/20/17 17:00 95 09/20/17 16:00 89 09/20/17 15:00 90 09/20/17 13:20 90 16 120/71 (87) 98 Nasal Cannula 2.00 09/20/17 13:20 09/20/17 13:04 98 Nasal Cannula 2.00 09/20/17 13:04 97 17 97 Nasal Cannula 2.00 09/20/17 13:04 98.0 99 17 123/79 (94) 98 Physical Exam GENERAL: This is a well-nourished, well-developed patient, in no apparent distress. SKIN: No rashes, ecchymoses or lesions. Cool and dry. HEAD: Atraumatic. Normocephalic. No temporal or scalp tenderness. EYES: Pupils equal round and reactive. Extraocular motions intact. No scleral icterus. No injection or drainage. ENT: Nose without bleeding, purulent drainage or septal hematoma. Throat without erythema, tonsillar hypertrophy or exudate. Uvula midline. Airway patent. NECK: Trachea midline. No JVD or lymphadenopathy. Supple, nontender, no meningeal signs. CARDIOVASCULAR: Regular rate and rhythm without murmurs, gallops, or rubs. RESPIRATORY: Clear to auscultation. Breath sounds equal bilaterally. No wheezes , rales, or rhonchi. GASTROINTESTINAL: Abdomen soft, non-tender, nondistended. No hepato-splenomegaly , or palpable masses. No guarding. MUSCULOSKELETAL: Extremities without clubbing, cyanosis, or edema. No joint tenderness, effusion, or edema noted. No calf tenderness. Negative Homans sign bilaterally. NEUROLOGICAL: Awake and alert. Cranial nerves II through XII intact. Motor and sensory grossly within normal limits. Five out of 5 muscle strength in all muscle groups. Normal speech. Laboratory Laboratory Tests Test 09/20/17 13:05 09/21/17 05:01 09/21/17 05:07 White Blood Count 6.3 9.8 Red Blood Count 5.17 5.00 Hemoglobin 16.1 15.8 Bedside Hemoglobin 16.3 Hematocrit 47.5 45.6 Bedside Hematocrit 48.0 Mean Corpuscular Volume 91.8 91.1 Mean Corpuscular Hemoglobin 31.2 31.5 Mean Corpuscular Hemoglobin Concent 34.0 34.6 Red Cell Distribution Width 13.1 13.3 Platelet Count 227 227 Mean Platelet Volume 6.9 7.5 Neutrophils (%) (Auto) 48.5 74.5 Lymphocytes (%) (Auto) 36.7 16.0 Monocytes (%) (Auto) 8.7 8.4 Eosinophils (%) (Auto) 5.3 0.6 Basophils (%) (Auto) 0.8 0.5 Neutrophils # (Auto) 3.1 7.3 Lymphocytes # (Auto) 2.3 1.6 Monocytes # (Auto) 0.6 0.8 Eosinophils # (Auto) 0.3 0.1 Basophils # (Auto) 0.1 0.1 CBC Comment DIFF FINAL DIFF FINAL Differential Comment Prothrombin Time 11.0 Prothromb Time International Ratio 1.1 Activated Partial Thromboplast Time 25.6 Bedside Sodium 144 Bedside Potassium 4.1 Bedside Chloride 106 Bedside Blood Urea Nitrogen 10 Bedside Creatinine 1.0 Bedside Glucose 135 Calcium Level 8.3 8.1 Magnesium Level 2.3 Total Creatine Kinase 388 1298 Creatine Kinase MB 8.0 70.2 Creatine Kinase MB % 2.1 5.4 Troponin I 0.57 B-Type Natriuretic Peptide 83 Blood Urea Nitrogen 7 Creatinine 0.92 Random Glucose 109 Sodium Level 139 Potassium Level 3.8 Chloride Level 106 Carbon Dioxide Level 25.2 Anion Gap 8 Estimat Glomerular Filtration Rate 104 Triglycerides Level 98 Cholesterol Level 167 LDL Cholesterol 102 HDL Cholesterol 45.6 Cholesterol/HDL Ratio 3.66 Result Diagram: 09/21/17 0501 09/21/17 0507 Imaging Last Impressions Chest X-Ray 09/20/17 1307 Signed Impressions: Service Date/Time: Wednesday, September 20, 2017 13:05 - CONCLUSION: Hazy ill-defined bibasilar parenchymal densities. MD Gardenia Graff Jr. VTE Risk Assessment Gardenia VTE Risk Assessment: Mod/High Risk (score >= 2) Caprini Risk Assessment Model Point Value = 1 Point Value = 2 Point Value = 3 Point Value = 5 Age 41-60 Minor surgery BMI > 25 kg/m2 Swollen legs Varicose veins or History of unexplained or recurrent spontaneous Oral contraceptives or hormone replacement Sepsis (< 1 month) Serious lung disease, including pneumonia (< 1 month) Abnormal pulmonary function Acute myocardial infarction Congestive heart failure (< 1 month) History of inflammatory bowel disease Medical patient at bed rest Age 61-74 Arthroscopic surgery Major open surgery (> 45 min) Laparoscopic surgery (> 45 min) Malignancy Confined to bed (> 72 hours) Immobilizing plaster cast Central venous access Age >= 75 History of VTE Family history of VTE Factor V Leiden Prothrombin [id number] Lupus anticoagulant Anticardiolipin antibodies Elevated serum homocysteine Heparin-induced thrombocytopenia Other congenital or acquired thrombophilia Stroke (< 1 month) Elective arthroplasty Hip, pelvis, or leg fracture Acute spinal cord injury (< 1 month) Prophylaxis Regimen Total Risk Factor Score Risk Level Prophylaxis Regimen 0-1 Low Early ambulation 2 Moderate Order ONE of the following: *Sequential Compression Device (SCD) *Heparin 5000 units SQ BID 3-4 Higher Order ONE of the following medications: *Heparin 5000 units SQ TID *Enoxaparin/Lovenox 40 mg SQ daily (WT < 150 kg, CrCl > 30 mL/min) *Enoxaparin/Lovenox 30 mg SQ daily (WT < 150 kg, CrCl > 10-29 mL/min) *Enoxaparin/Lovenox 30 mg SQ BID (WT < 150 kg, CrCl > 30 mL/min) AND/OR *Sequential Compression Device (SCD) 5 or more Highest Order ONE of the following medications: *Heparin 5000 units SQ TID (Preferred with Epidurals) *Enoxaparin/Lovenox 40 mg SQ daily (WT < 150 kg, CrCl > 30 mL/min) *Enoxaparin/Lovenox 30 mg SQ daily (WT < 150 kg, CrCl > 10-29 mL/min) *Enoxaparin/Lovenox 30 mg SQ BID (WT < 150 kg, CrCl > 30 mL/min) AND *Sequential Compression Device (SCD) Assessment and Plan Assessment and Plan 57 years old male with history of coronary artery disease hyperlipidemia presented to the ED on a semi-alert, patient went to cath seen by cardiology had a heart cath and stenting, continue with aspirin for life beta-cesia or PRATIBHA inhibitor, statin, continue heart monitoring, continue following with cardiology, discharge when stable and cleared by cardiology service Discussed Condition With Patient Physician Certification Order for Inpatient Services The services are ordered in accordance with Medicare regulations or non- Medicare payer requirements, as applicable. In the case of services not specified as inpatient-only, they are appropriately provided as inpatient services in accordance with the 2-midnight benchmark. days is the estimated time the patient will need to remain in the hospital, assuming treatment plan goals are met and no additional complications. Jai Mondragon MD Sep 21, 2017 11:51
--- NOTE | 2017-09-21 19:58 | ECHRPT ---
Indication: cardiomyopathy CONCLUSIONS The left ventricular systolic function is severely reduced with an estimated ejection fraction in th e range of 25-30%. There is global left ventricular dysfunction, with distal anterior and apical akinesis. Mild mitral valve regurgitation. There is trace tricuspid valve regurgitation. BP: / HR: Rhythm: MEASUREMENTS (Male / Female) Normal Values Technical Quality:Good 2D ECHO LV Diastolic Diameter PLAX 5.5 cm 4.2 - 5.9 / 3.9 - 5.3 cm LV Systolic Diameter PLAX 5.0 cm IVS Diastolic Thickness 1.0 cm 0.6 - 1.0 / 0.6 - 0.9 cm LVPW Diastolic Thickness 1.2 cm 0.6 - 1.0 / 0.6 - 0.9 cm LV Relative Wall Thickness 0.4 RV Internal Dim ED PLAX 2.6 cm M-MODE Aortic Root Diameter MM 3.3 cm LA Systolic Diameter MM 3.3 cm LA Ao Ratio MM 1.0 AV Cusp Separation MM 2.2 cm DOPPLER Mitral E Point Velocity 67.6 cm/s Mitral A Point Velocity 70.1 cm/s Mitral E to A Ratio 1.0 LV E' Lateral Velocity 7.3 cm/s Mitral E to LV E' Lateral Ratio 9.2 LV E' Septal Velocity 6.0 cm/s Mitral E to LV E' Septal Ratio 11.2 TR Peak Velocity 279.0 cm/s TR Peak Gradient 31.1 mmHg Right Atrial Pressure 10.0 mmHg Pulmonary Artery Systolic Pressu 41.1 mmHg Right Ventricular Systolic Press 41.1 mmHg FINDINGS LEFT VENTRICLE Normal left ventricular size. The left ventricular systolic function is severely reduced with an estimated ejection fraction in th e range of 25-30%. There is global left ventricular dysfunction, with distal anterior and apical akinesis. RIGHT VENTRICLE Normal right ventricular size and systolic function. LEFT ATRIUM The left atrial size is normal. RIGHT ATRIUM The right atrial size is normal. ATRIAL SEPTUM Normal atrial septal thickness without atrial level shunting by limited color doppler interrogation. AORTA The aortic root and proximal ascending aorta are normal in size on limited imaging. MITRAL VALVE Structurally normal mitral valve. Mild mitral valve regurgitation. AORTIC VALVE Trileaflet aortic valve. No aortic valve stenosis or regurgitation. TRICUSPID VALVE Structurally normal tricuspid valve. There is trace tricuspid valve regurgitation. The estimated pulmonary arterial pressure is 41.1 mmHg. PULMONARY VALVE No pulmonary valve regurgitation or stenosis. VESSELS The inferior vena cava is normal in size. PERICARDIUM No pericardial effusion. Vincent G. Jamse DO (Electronically Signed) Final Date:21 September 2017 19:57
--- NOTE | 2017-09-21 20:20 | EKG ---
Date Performed: 09/20/2017 Time Performed: 13:06:23 PTAGE: 57 years EKG: Sinus rhythm ST ELEVATION, CONSIDER ANTERIOR INJURY ACUTE [place] PREVIOUS TRACING : 11/06/2013 12.25 WHEN COMPARED TO PRIOR TRACING THE PATIENT NOW HAS MA RKED INFERIOR ST ELEVATION. CONSISTENT WITH ACUTE ST ELEVATION [place] DOCTOR: Sofía Hall Interpretating Date/Time 09/21/2017 20:19:17
[2017-09-21] MEDS: ATORVASTATIN 40 MG TAB PO SCH (21:33)
[2017-09-22] VITALS (32 sets, daily range): BP systolic 90–104; BP diastolic 48–66; PULSE 76–109; RESP 17–20; TEMP 98.5–101; O2SAT 94–97
--- NOTE | 2017-09-22 08:35 | PD.CARD.PN ---
Subjective Subjective Remarks Feeling generally weak this morning. Febrile last night. Mild nonproductive cough. No angina, dyspnea, dizziness, palpitations. Objective Medications Item Value Date Time Aspirin 81 mg 09/21/17899 (Aspirin Chew) DAILY/PO 09/21/17928 Ticagrelor 90 mg 09/21/17899 (Brilinta) BID/PO 09/21/172131 Metoprolol 12.5 mg 09/20/172099 Tartrate BID/PO 09/21/172133 (Lopressor) Atorvastatin 40 mg 09/20/17 2100 Calcium HS/PO 09/21/172132 (Lipitor) Enalapril Maleate 2.5 mg 09/20/172099 (Vasotec) BID/PO 09/21/172132 Current Medications Medications (Trade) Dose Ordered Sig/Prabha Route Start Time Stop Time Status Last Admin (NS Flush) 2 ml UNSCH PRN IVF 09/20/17 13:15 Nitroglycerin/ Dextrose 250 ml @ 3 mls/hr TITRATE PRN IV 09/20/17 13:45 (Restoril) 15 mg HS PRN PO 09/20/17 14:15 (Aspirin Chew) 81 mg DAILY PO 09/21/17 09:00 09/21/17 09:29 (Brilinta) 90 mg BID PO 09/21/17 09:00 09/21/17 21:32 (Lopressor) 12.5 mg BID PO 09/20/17 21:00 09/21/17 21:34 (Lipitor) 40 mg HS PO 09/20/17 21:00 09/21/17 21:33 (Vasotec) 2.5 mg BID PO 09/20/17 21:00 09/21/17 21:33 (Ultram) 50 mg HS PO 09/21/17 00:00 09/21/17 21:33 Vital Signs / I&O Vital Signs Date Time Temp Pulse Resp B/P (MAP) Pulse Ox O2 Delivery O2 Flow Rate FiO2 09/22/17 08:11 109 09/22/17 07:44 101.0 99 18 103/62 (76) 94 09/22/17 07:44 102 09/22/17 06:00 94 09/22/17 05:00 102 09/22/17 04:00 103 09/22/17 04:00 100.2 105 18 101/66 (78) 94 09/22/17 03:00 94 09/22/17 02:00 90 09/22/17 01:00 96 09/22/17 00:00 99.8 105 20 90/60 (70) 95 09/22/17 00:00 88 09/21/17 23:00 88 09/21/17 22:00 98 09/21/17 21:00 90 09/21/17 20:00 99.9 106 20 113/78 (90) 96 09/21/17 20:00 96 09/21/17 19:00 96 09/21/17 18:00 96 09/21/17 17:00 84 09/21/17 16:00 82 09/21/17 15:00 84 09/21/17 15:00 97.9 98 16 95/49 (64) 98 09/21/17 14:00 92 09/21/17 13:00 86 09/21/17 12:30 84 09/21/17 12:00 80 09/21/17 11:45 97.8 90 16 91/58 (69) 97 09/21/17 11:30 90 09/21/17 11:00 88 09/21/17 10:03 90 09/21/17 10:00 94 09/21/17 09:30 84 09/21/17 09:00 94 I/O 09/21/17 09/21/17 09/21/17 09/22/17 09/22/17 09/22/17 07:00 15:00 23:00 07:00 15:00 23:00 Intake Total 1950 ml 720 ml 240 ml Output Total 1050 ml Balance 900 ml 720 ml 240 ml Intake Oral 960 ml 720 ml 240 ml IV Total 990 ml Output Urine Total 1050 ml # Voids 4 3 # Bowel Movements 0 Physical Exam GENERAL: Well developed, well nourished. No acute distress. HEENT: Jugular venous pressure is normal. CHEST: Lungs clear to auscultation bilaterally. CARDIAC: Regular rate and rhythm without S3, S4, or murmur. ABDOMEN: Soft, nontender, no hepatosplenomegaly. Bowel sounds present. EXTREMITIES: No clubbing, cyanosis, or edema. Assessment and Plan Problem List: (1) Acute ST elevation myocardial infarction ICD Codes: I21.3 - ST elevation (STEMI) myocardial infarction of unspecified site Status: Acute Plan: Stable overnight. No further angina. Continue current medical regimen. Febrile last night, unclear source. OK for discharge late today from cardiac standpoint, though may want to keep patient at least overnight in light of fever. (2) Cardiomyopathy ICD Codes: I42.9 - Cardiomyopathy, unspecified Status: Chronic Plan: Somewhat suboptimal left ventriculogram, EF possibly down to 25%, probably component of non-ischemic etiology as well. Echo confirms reduced EF 25-30%. No definite CHF. Rec continue beta cesia, PRATIBHA-I. (3) Hyperlipidemia ICD Codes: E78.5 - Hyperlipidemia, unspecified Status: Chronic Plan: Suboptimal LDL (102). Continue statin therapy, recheck labs in 6-8 weeks. Code Status full code Discussed Condition With patient Problem Qualifiers (1) Acute ST elevation myocardial infarction: Qualified Codes: I21.02 - ST elevation (STEMI) myocardial infarction involving left anterior descending coronary artery (2) Cardiomyopathy: Qualified Codes: I42.9 - Cardiomyopathy, unspecified (3) Hyperlipidemia: Qualified Codes: E78.2 - Mixed hyperlipidemia Steven Lock MD Sep 22, 2017 08:35
[2017-09-22] MEDS: METOPROLOL TARTRATE 25 MG TAB PO SCH ×2 (09:44→21:00)
[2017-09-22] MEDS: ASPIRIN 81 MG CHEW TAB PO SCH (09:44)
[2017-09-22] MEDS: ENALAPRIL MALEATE 2.5 MG TAB PO SCH ×2 (09:44→21:00)
[2017-09-22] MEDS: TICAGRELOR 90 MG TAB PO SCH ×2 (09:45→21:00)
[2017-09-22 13:00] LABS: HEMATOCRIT 47.8 % (39.0-51.0); HEMOGLOBIN 16.3 GM/DL (13.0-17.0); MEAN CELL VOLUME 91.7 FL (80.0-100.0); MEAN CORPUSCULAR HEMOGLOBIN 31.3 PG (27.0-34.0); MEAN CORPUSCULAR HGB CONC 34.2 % (32.0-36.0); MEAN PLATELET VOLUME 7.3 FL (7.0-11.0); PLATELET COUNT 200 TH/MM3 (150-450); RED BLOOD COUNT 5.22 MIL/MM3 (4.50-5.90); RED CELL DISTRIBUTION WIDTH 13.2 % (11.6-17.2); WHITE BLOOD COUNT 8.1 TH/MM3 (4.0-11.0)
[2017-09-22 13:26] LABS: BICARBONATE 26.9 MEQ/L (21.0-32.0); CALCIUM 8.7 MG/DL (8.5-10.1); CREATININE 1.09 MG/DL (0.60-1.30)
[2017-09-22] MEDS ORDERED: ACETAMINOPHEN 500 MG CPLT PO PRN (15:15)
--- NOTE | 2017-09-22 16:29 | HHI.PR ---
Subjective Remarks Fevers are still present this morning. Viral etiology may be present as white blood cell counts have remained within normal limits. Influenza testing is pending. Patient has a positive contact as his sister had influenza. Objective Vital Signs Date Time Temp Pulse Resp B/P (MAP) Pulse Ox O2 Delivery O2 Flow Rate FiO2 09/22/17 16:00 95 09/22/17 15:51 98.7 96 17 95/63 (74) 97 09/22/17 15:51 Room Air 09/22/17 15:00 106 09/22/17 14:00 88 09/22/17 13:00 80 09/22/17 12:43 92 09/22/17 12:00 84 09/22/17 11:56 93 09/22/17 11:54 98.5 88 17 103/48 (66) 97 09/22/17 11:54 Room Air 09/22/17 11:00 76 09/22/17 10:32 87 09/22/17 10:00 92 09/22/17 09:14 105 09/22/17 09:00 104 09/22/17 08:11 109 09/22/17 08:00 106 09/22/17 07:44 101.0 99 18 103/62 (76) 94 09/22/17 07:44 102 09/22/17 07:00 88 09/22/17 06:00 94 09/22/17 05:00 102 09/22/17 04:00 103 09/22/17 04:00 100.2 105 18 101/66 (78) 94 09/22/17 03:00 94 09/22/17 02:00 90 09/22/17 01:00 96 09/22/17 00:00 99.8 105 20 90/60 (70) 95 09/22/17 00:00 88 09/21/17 23:00 88 09/21/17 22:00 98 09/21/17 21:00 90 09/21/17 20:00 99.9 106 20 113/78 (90) 96 09/21/17 20:00 96 09/21/17 19:00 96 09/21/17 18:00 96 09/21/17 17:00 84 I/O 09/21/17 09/21/17 09/21/17 09/22/17 09/22/17 09/22/17 07:00 15:00 23:00 07:00 15:00 23:00 Intake Total 1950 ml 720 ml 240 ml Output Total 1050 ml Balance 900 ml 720 ml 240 ml Intake Oral 960 ml 720 ml 240 ml IV Total 990 ml Output Urine Total 1050 ml # Voids 4 3 # Bowel Movements 0 Result Diagram: 09/22/17 1155 09/22/17 1155 Objective Remarks GENERAL: NAD, A&Ox3 HEAD: Normocephalic. NECK: Supple, trachea midline. No lymphadenopathy. EYES: No scleral icterus. No injection or drainage. CARDIOVASCULAR: Regular rate and rhythm without murmurs, gallops, or rubs. RESPIRATORY: Breath sounds equal bilaterally. No accessory muscle use. GASTROINTESTINAL: Abdomen soft, non-tender, nondistended. MUSCULOSKELETAL: No cyanosis, or edema. SKIN: Warm and dry. NEURO: No focal neurological deficitis. A/P Problem List: (1) Cardiomyopathy ICD Code: I42.9 - Cardiomyopathy, unspecified Status: Chronic (2) Hyperlipidemia ICD Code: E78.5 - Hyperlipidemia, unspecified Status: Chronic (3) Acute ST elevation myocardial infarction ICD Code: I21.3 - ST elevation (STEMI) myocardial infarction of unspecified site Status: Acute (4) History of coronary artery disease ICD Code: Z86.79 - Personal history of other diseases of the circulatory system Status: Acute Assessment and Plan 57-year-old male admitted secondary to acute STEMI Acute STEMI Coronary artery disease Cardiomyopathy Continue medical management Patient has been cleared by cardiology Fever Possible influenza Flu test pending Continue to treat fevers Follow CBC DVT prophylaxis Lovenox Problem Qualifiers (1) Cardiomyopathy: Qualified Codes: I42.9 - Cardiomyopathy, unspecified (2) Hyperlipidemia: Qualified Codes: E78.2 - Mixed hyperlipidemia (3) Acute ST elevation myocardial infarction: Qualified Codes: I21.02 - ST elevation (STEMI) myocardial infarction involving left anterior descending coronary artery Alessandro Pearson MD Sep 22, 2017 16:29
[2017-09-22] MEDS: ATORVASTATIN 40 MG TAB PO SCH (21:00)
[2017-09-22] MEDS: traMADol HCL 50 MG TAB PO SCH (21:00)
[2017-09-23] VITALS (15 sets, daily range): BP systolic 90–98; BP diastolic 56–70; PULSE 85–111; RESP 17–20; TEMP 98.6–99.8; O2SAT 95–98
[2017-09-23] MEDS: guaiFENesin/DEXTROMETHORPHAN 200 MG/20 MG/10 ML CUP PO PRN ×2 (04:38→08:46)
[2017-09-23 06:04] LABS: AUTOMATED NEUTROPHIL # 4.5 TH/MM3 (1.8-7.7); BASOPHIL # 0.1 TH/MM3 (0-0.2); BASOPHIL % 0.8 % (0.0-2.0); EOSINOPHIL # 0.6 TH/MM3 (0-0.4); EOSINOPHIL % 7.3 % (0.0-4.0); HEMATOCRIT 46.1 % (39.0-51.0); HEMOGLOBIN 15.6 GM/DL (13.0-17.0); LYMPH % 23.1 % (9.0-44.0); LYMPHOCYTE # 1.8 TH/MM3 (1.0-4.8); MEAN CELL VOLUME 91.7 FL (80.0-100.0); MEAN CORPUSCULAR HGB CONC 33.8 % (32.0-36.0); MEAN PLATELET VOLUME 7.3 FL (7.0-11.0); MONO % 10.4 % (0.0-8.0); MONOCYTE # 0.8 TH/MM3 (0-0.9); NEUT % 58.4 % (16.0-70.0); PLATELET COUNT 196 TH/MM3 (150-450); RED BLOOD COUNT 5.03 MIL/MM3 (4.50-5.90); RED CELL DISTRIBUTION WIDTH 13.3 % (11.6-17.2); WHITE BLOOD COUNT 7.7 TH/MM3 (4.0-11.0)
[2017-09-23 06:34] LABS: ALBUMIN 3.2 GM/DL (3.4-5.0); AST (GOT) 39 U/L (15-37); BLOOD UREA NITROGEN 12 MG/DL (7-18); CALCIUM 8.5 MG/DL (8.5-10.1); CHLORIDE 104 MEQ/L (98-107); CREATININE 1.21 MG/DL (0.60-1.30); GLOMERULAR FILTRATION RATE 75 ML/MIN (>89); GLUCOSE,RANDOM 145 MG/DL (74-106); SODIUM (NA) 138 MEQ/L (136-145)
[2017-09-23 06:37] LABS: ALKALINE PHOSPHATASE 64 U/L (45-117); ALT (GPT) 21 U/L (12-78)
[2017-09-23] MEDS ORDERED: METO25TA3 PO ×2 (08:20→10:45)
[2017-09-23] MEDS ORDERED: ATOR40TA16 PO ×2 (08:20→10:45)
[2017-09-23] MEDS ORDERED: ENAL2.5T PO ×2 (08:20→10:45)
[2017-09-23] MEDS ORDERED: BRIL90TA PO ×2 (08:20→10:45)
[2017-09-23] MEDS: TICAGRELOR 90 MG TAB PO SCH (08:45)
[2017-09-23] MEDS: ASPIRIN 81 MG CHEW TAB PO SCH (08:46)
[2017-09-23] MEDS: ENALAPRIL MALEATE 2.5 MG TAB PO SCH (08:46)
[2017-09-23] MEDS: METOPROLOL TARTRATE 25 MG TAB PO SCH (08:46)
--- NOTE | 2017-09-23 13:43 | HHI.DS ---
Discharge Summary Admission Date Sep 20, 2017 at 13:17 Discharge Date: Sep 23, 2017 Admitting Diagnosis Acute STEMI, CAD, reported cocaine use (1) Cardiomyopathy ICD Code: I42.9 - Cardiomyopathy, unspecified Diagnosis: Principal Status: Chronic (2) Hyperlipidemia ICD Code: E78.5 - Hyperlipidemia, unspecified Diagnosis: Principal Status: Chronic Procedures Heart catheter Brief History - From Admission 57 years old male with history of hyperlipidemia and coronary artery disease had multiple stenting 6 years ago, presented to the ED complaining of 2 weeks of chest pain comes and goes gets up to 7 out of 10, along with diaphoresis short of breath and dizziness, no transfer. 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 had pending by cardiology, when I saw him he was chest pain-free denied any other symptom, he is a smoker according to him one pack per day for about 20 years CBC/BMP: 09/23/17 0510 09/23/17 0510 Significant Findings Laboratory Tests Test 09/21/17 05:01 09/21/17 05:07 09/22/17 11:55 09/23/17 05:10 Neutrophils (%) (Auto) 74.5 % (16.0-70.0) Monocytes (%) (Auto) 8.4 % (0.0-8.0) 10.4 % (0.0-8.0) Random Glucose 109 MG/DL (74-106) 145 MG/DL (74-106) Calcium Level 8.1 MG/DL (8.5-10.1) Total Creatine Kinase 1298 U/L (39-308) Creatine Kinase MB 70.2 NG/ML (0.5-3.6) Creatine Kinase MB % 5.4 % (0.0-4.0) LDL Cholesterol 102 MG/DL (0-99) Estimat Glomerular Filtration Rate 85 ML/MIN (>89) 75 ML/MIN (>89) Eosinophils (%) (Auto) 7.3 % (0.0-4.0) Eosinophils # (Auto) 0.6 TH/MM3 (0-0.4) Albumin 3.2 GM/DL (3.4-5.0) Aspartate Amino Transf (AST/SGOT) 39 U/L (15-37) Hospital Course Mr. Daniels is a 57-year-old male area and he came in secondary to chest symptoms and evidence of acute ST AL. Cardiac catheter was performed. Coronary artery disease was found. Stent was placed. Cardiomyopathy is also discovered. Ejection fraction is 25-30%. Patient had a fever after the procedure. Etiology appears to be viral. He's had a upper respiratory tract infection prior to arrival. Fevers were monitored and have subsided. No elevations in white blood cell count. Influenza testing is negative. Patient is medically stable for discharge to home today with new treatments as listed below. He'll follow-up with PCP and cardiology as an outpatient. Pt Condition on Discharge: Stable Discharge Disposition: Discharge Home Discharge Time: <= 30 minutes Discharge Instructions DIET: Follow Instructions for: As Tolerated, No Restrictions Activities you can perform: Regular-No Restrictions Follow up Referrals: Cardiology - 2 Weeks PCP Follow-up - 2 Weeks New Medications: Atorvastatin (Atorvastatin) 40 Mg Tab 40 MG PO HS for Cholesterol Management, #30 TAB 0 Refills Enalapril (Enalapril) 2.5 Mg Tab 2.5 MG PO BID, #60 TAB 0 Refills Metoprolol Tartrate (Metoprolol Tartrate) 25 Mg Tab 12.5 MG PO BID for Blood Pressure Management, #30 TAB 0 Refills Ticagrelor (Brilinta) 90 Mg Tab 90 MG PO BID for Blood Clot Prevention, #60 TAB 0 Refills Atorvastatin (Atorvastatin) 40 Mg Tab 40 MG PO HS for Cholesterol Control, #30 TAB Enalapril (Enalapril) 2.5 Mg Tab 2.5 MG PO BID for Blood Pressure Management, #60 TAB Metoprolol Tartrate (Metoprolol Tartrate) 25 Mg Tab 12.5 MG PO BID for Blood Pressure Management, #60 TAB Ticagrelor (Brilinta) 90 Mg Tab 90 MG PO BID for Blood Clot Prevention, #60 TAB Continued Medications: Aspirin (Aspirin) 81 Mg Tab 81 MG PO DAILY Cyclobenzaprine Hcl (Flexeril) 10 Mg Tab 10 MG PO TID PRN for MUSCLE PAIN, #[address] on medication. Do not take with alcohol. Diclofenac Sod (Diclofenac Sodium Dr) 75 Mg Tab 75 MG PO BID PRN for PAIN for 10 Days, TAB Alessandro Pearson MD Sep 23, 2017 13:43
== END 2017-09-23 13:15 | disposition home or self-care (01) | DRG 247 ==
LOC: NEPC 13:04 → NEDA 13:17 → HCIS 14:24
PROVIDERS: ADMIT Hospitalist; ATTEND Hospitalist
PROC: 027034Z Dilation of Coronary Artery, One Artery with Drug-eluting Intraluminal Device, Percutaneous Approach (ICD-10-PCS; principal; 2017-09-20)
PROC: 4A023N7 Measurement of Cardiac Sampling and Pressure, Left Heart, Percutaneous Approach (ICD-10-PCS; 2017-09-20)
PROC: B2111ZZ Fluoroscopy of Multiple Coronary Arteries using Low Osmolar Contrast (ICD-10-PCS; 2017-09-20)
PROC: B2151ZZ Fluoroscopy of Left Heart using Low Osmolar Contrast (ICD-10-PCS; 2017-09-20)
DX: I21.02 ST elevation (STEMI) myocardial infarction involving left anterior descending coronary artery (principal); I42.9 Cardiomyopathy, unspecified; T82.855A Stenosis of coronary artery stent, initial encounter; I25.10 Atherosclerotic heart disease of native coronary artery without angina pectoris; I10 Essential (primary) hypertension; F14.10 Cocaine abuse, uncomplicated; I25.2 Old myocardial infarction; Y71.2 Prosthetic and other implants, materials and accessory cardiovascular devices associated with adverse incidents; Z95.5 Presence of coronary angioplasty implant and graft; E78.2 Mixed hyperlipidemia; F17.210 Nicotine dependence, cigarettes, uncomplicated; Z91.19 Patient's noncompliance with other medical treatment and regimen; J06.9 Acute upper respiratory infection, unspecified
CPT/HCPCS: 71045; 80048; 80053; 80061; 82310; 82550; 82552; 83735; 83880; 84484; 85002; 85025; 85027; 85610; 85730; 87040; 87804; 92941; 93005; 93306; 93458; 96374; C1725; C1769; C1874; C1887; C1893; J1644; J2250; J3246; J7030; Q9967

== ENCOUNTER 2018-01-13 08:05 | Emergency (ER) | payer MEDICARE, OTHER ==
[~2018-01-13 08:05] MED LIST changes: +ATOR40TA16 PO; +BRIL90TA PO; +ENAL2.5T PO; +METO25TA3 PO
[2018-01-13 08:29] VITALS: BP 112/69; PULSE 80; RESP 17; TEMP 98.2; O2SAT 98
--- NOTE | 2018-01-13 08:55 | PD ---
HPI Chief Complaint: Pain: Acute or Chronic Time Seen by Provider: 08:39 Travel History International Travel<30 days: No Contact w/Intl Traveler<30days: No Traveled to known affect area: No History of Present Illness HPI Patient is a 57-year-old male presenting [facility] for evaluation of left knee pain. Patient states it started hurting last Wednesday when he was briskly walking to the bus. Patient did not fall or twist his knee. He took Aleve once and ibuprofen once. He denies any weakness or numbness. He states the pain was worse last week. He reports that the pain radiates up the lateral aspect of his leg to his hip. He denies any weakness or numbness. Pain is worse with ambulation. Pain is somewhat relieved with rest. Patient reports chronic knee pain bilaterally due to osteoarthritis, he states his knees are [id number] and he was supposed to have his knees replaced. PFSH Past Medical History Arthritis: Yes (BILATERAL KNEE SURGERIES) Cardiac Catheterization: Yes Chest Pain: Yes Hypertension: Yes Musculoskeletal: Yes (ARTHROSCOPY TO BOTH KNEES, HERNIATED DISCS) Myocardial Infarction: Yes Past Surgical History Abdominal Surgery: No AICD: No Arteriovenous Shunt: No Body Medical Devices: CARDIAC STENTS Cardiac Surgery: Yes (X3 STENT TO LAD 09/20/17) Coronary Artery Bypass Graft: No Coronary Stent: Yes (X6 ) Ear Surgery: No Endocrine Surgery: No Eye Surgery: No Genitourinary Surgery: No Gynecologic Surgery: No Insulin Pump: No Joint Replacement: No Oral Surgery: No Pacemaker: No Thoracic Surgery: No Other Surgery: Yes (BILAT KNEES) Social History Alcohol Use: Yes (OCCASIONAL ) Tobacco Use: Yes (7 cigs/day) Substance Use: Yes (coccaine last night) Allergies-Medications (Allergen,Severity, Reaction): Coded Allergies: No Known Allergies (Verified Allergy, Unknown, 09/20/17) Reported Meds & Prescriptions Reported Meds & Active Scripts Active Brilinta (Ticagrelor) 90 Mg Tab 90 Mg PO BID Metoprolol Tartrate 25 Mg Tab 12.5 Mg PO BID Enalapril (Enalapril Maleate) 2.5 Mg Tab 2.5 Mg PO BID Atorvastatin (Atorvastatin Calcium) 40 Mg Tab 40 Mg PO HS Enalapril (Enalapril Maleate) 2.5 Mg Tab 2.5 Mg PO BID Metoprolol Tartrate 25 Mg Tab 12.5 Mg PO BID Atorvastatin (Atorvastatin Calcium) 40 Mg Tab 40 Mg PO HS Brilinta (Ticagrelor) 90 Mg Tab 90 Mg PO BID Flexeril (Cyclobenzaprine HCl) 10 Mg Tab 10 Mg PO TID PRN Do not drive on medication. Do not take with alcohol. Diclofenac Sodium Dr (Diclofenac Sod) 75 Mg Tab 75 Mg PO BID PRN 10 Days Reported Aspirin 81 Mg Tab 81 Mg PO DAILY Review of Systems Except as stated in HPI: all other systems reviewed are Neg Musculoskeletal: Positive: Arthralgias Physical Exam Narrative GENERAL: Well-developed, well-nourished, alert [place] male. Presenting in no acute distress. SKIN: Warm and dry. HEAD: Normocephalic. EYES: No scleral icterus. No injection or drainage. NECK: Supple, trachea midline. No JVD or lymphadenopathy. CARDIOVASCULAR: Regular rate and rhythm without murmurs, gallops, or rubs. RESPIRATORY: Breath sounds equal bilaterally. No accessory muscle use. GASTROINTESTINAL: Abdomen soft, non-tender, nondistended. MUSCULOSKELETAL: No cyanosis, or edema. No obvious deformity, no tenderness to palpation. Full range of motion with flexion extension. BACK: Nontender without obvious deformity. No CVA tenderness. Data Data Last Documented VS Vital Signs Date Time Temp Pulse Resp B/P (MAP) Pulse Ox O2 Delivery O2 Flow Rate FiO2 01/13/18 08:29 98.2 80 17 112/69 (83) 98 [facility] Medical Decision Making Medical Screen Exam Complete: Yes Emergency Medical Condition: Yes Interpretation(s) Vital Signs Date Time Temp Pulse Resp B/P (MAP) Pulse Ox O2 Delivery O2 Flow Rate FiO2 01/13/18 08:29 98.2 80 17 112/69 (83) 98 Differential Diagnosis Arthritis versus sprain versus strain versus other Narrative Course Patient is a 57-year-old male presenting with 1 week of an acute exacerbation of chronic knee pain. Patient has not followed up with his primary doctor, he has not taken any conservative measures other than 2 doses of NSAIDs over the last week. Patient was encouraged to alternate heat and ice the affected area, continue range of motion exercises, take [id number] acetaminophen as needed and as directed for pain. He was advised to follow-up with his primary doctor. A medical screening exam was performed: At the time of evaluation the presenting medical condition was determined not to be of an emergent nature. The patient was given the option of receiving additional care, but declined. Patient was given options for additional community resources from which to obtain care. The Patient Has Been advised to seek medical attention for their presenting complaint. The patient has been advised to return to the ER at any time if an emergent condition develops. Diagnosis Primary Impression: Encounter for medical screening examination Rosina Griffin Jan 13, 2018 08:55
== END 2018-01-13 09:46 | disposition left against medical advice (07) ==
LOC: NEPD 08:05
DX: M25.562 Pain in left knee (principal); I10 Essential (primary) hypertension; I25.2 Old myocardial infarction; F17.210 Nicotine dependence, cigarettes, uncomplicated; Z95.5 Presence of coronary angioplasty implant and graft; Z79.899 Other long term (current) drug therapy
CPT/HCPCS: 99281